=== PATIENT | male | born 1990 | race Caucasian/White ===

== ENCOUNTER 2017-02-16 21:38 | Emergency (ER) | payer OTHER ==
[~2017-02-16] VITALS: Ht 177.8 cm; Wt 81.8 kg
[~2017-02-16 21:38] MED LIST: IBUP800T28 PO; OXYC-407 PO; SULF1TAB7 PO
[2017-02-16 21:41] VITALS: BP 120/84; PULSE 78; RESP 16; O2SAT 97
--- NOTE | 2017-02-16 22:20 | ED.REPORT ---
HPI-Extremity Problem Upper Date of Service Feb 16, 2017 ED Provider: Jaime Hall MD A 26 year old male with no pertinent medical history presents to the ED complaining of a laceration. The pt was catching a softball with his right hand when the ball lacerated his finger. No other trauma is reported. Nursing Notes Stated Complaint: FINGER LACERATION Chief Complaint: Extremity Trauma Nursing Notes Reviewed: Yes Allergies: Coded Allergies: No Known Allergies (Verified Allergy, Unknown, 03/24/16) Scheduled Sulfamethoxazole/Trimeth 800-160 mg (Bactrim DS) 1 Each Tablet 1 TABLET PO BID Scheduled PRN Ibuprofen (Ibuprofen) 800 Mg Tablet 800 MG PO TID PRN PRN For Pain Oxycodone HCl/Acetaminophen 5-325 (Endocet 5-325) 1 Each Tablet 1-2 EACH PO Q6 PRN PRN For Pain General Time Seen by MD: 22:19 Chief Complaint Finger injury right 4 Hx Obtained From: Patient Arrived By: Walk-in Onset Occurred: 1 - 4 hours ago Symptom Duration: Since onset Recent Healthcare: No recent doctor visit, No recent hospitalization Similar Sx Previous: No Past Medical History Past Medical History deviated septum as a child Past Surgical History left hand surgery Smoking History Light Tobacco Smoker (occasional cigar) Social History Alcohol Use: "Social" Drug Use: Denies drug use Other Social History: Good social support, Occupation [employer] Ambulatory Status Independent Review of Systems Review of Systems Note: laceration Musculoskeletal: Reports: Extremity pain, Denies: Back pain, Neck pain Skin: Denies Rash Complete sys rev & neg: except as marked. Respiratory: Denies: Non-productive cough, Shortness of breath Cardiovascular: Denies: Chest pain GI: Denies: Abdominal pain, Diarrhea, Nausea, Vomiting Physical Exam Initial Vital Signs Vital Signs (First) Date Time Temp Pulse Resp B/P Pulse Ox O2 Delivery O2 Flow Rate FiO2 02/16/17 21:41 37.1 78 16 120/84 97 Room Air Initial VS: Reviewed General/Constitutional: Awake, Alert Neck: Atraumatic, Supple, Full range of motion Respiratory / Chest: Atraumatic, Breath sounds NL, Breath sounds = bilat, No respiratory distress Cardiovascular: Heart rate NL, Regular rhythm, Heart sounds NL, No gallop, No murmurs, No rubs Upper Extremity / MS: Atraumatic, Full range of motion Wrist / Hand: Full range of motion, Neurologic intact, Vascular intact 1.5 cm laceration about the right fourth finger overlying the DIP joint on the dorsal aspect of the finger no foreign body or ligamentous injury able to flex and extend the finger Skin: Color NL, No rash, Warm, Dry Neurologic: Oriented X3, Speech NL, No motor deficits, No sensory deficits Head / Eyes: Atraumatic, Normocephalic, PERRL, EOMI ENT: Atraumatic, Airway patent, Mucous membranes moist Abdomen: Atraumatic, Soft, Non-tender Back: Atraumatic, Full range of motion Lower Extremity / Pelvis / MS: Atraumatic, Full range of motion Psychiatric: Affect NL, Mood NL Interpretation & Diagnostics Interpretation & Diagnostics: Right finger x-ray: no acute findings Interpreted by ED physician Procedures Digital Nerve Block Digital Nerve Block Note: palmar approach, injected bilaterally Time: 22:56 Procedure Performed by: ED physician Indication: Finger laceration repair Consent / Setup / Site Prep: Informed consent provided, Consent from patient , Time-out performed, Hand hygiene observed, Stand sterile technique Skin Preparation Agent: Betadine Digit Involved: Ring finger right Digital Block Procedure: Lidocaine 1% (4 ml) Post-Procedure / Complications: Antibiotic oint applied, Dressing applied, No complications, Condition improved, Tolerated procedure well, Patient stable Laceration Management Time: 22:56 Procedure Performed by: ED physician Consent / Setup / Site Prep: Informed consent provided, Consent from patient , Time-out performed, Hand hygiene observed, Stand sterile technique Location of Wound: right fourth finger Wound Length: 1 cm (1.5 cm) Local Anesthesia: Lidocaine 1% Digital Block: Yes Digit Involved: Ring finger right Wound Preparation: Betadine Debridement: None Irrigation: Copious Foreign Body Explore / Removal: Explored for foreign body Repair Skin: ___ O (5), Nylon # Sutures - Skin: 5 Suture Technique: Simple Post-Procedure / Complications: Antibiotic oint applied, Dressing applied, No complications, Condition improved, Tolerated procedure well, Patient stable Re-Eval/Medical Decision Med Decision/Clinical Course In summary, the patient is a 26-year-old male with no significant past medical history who presents with a laceration to the right fourth finger. Our primary and secondary assessment reveals an awake, alert patient in no acute distress. Hemodynamically stable and afebrile. Exam reveals a laceration as described above and they are neurovascularly intact distal to the injury. The wound was thoroughly cleaned, explored and repaired as documented above after performing a digital block. There is no evidence of foreign body or tendinous involvement. Plain films demonstrate no fracture, dislocation or foreign body. Given the patient's workup, feel they are safe for discharge. The patient's tetanus was updated. Have discussed with the patient results of workup, proper wound care, indications for return including signs and symptoms of infection and need for PCP/ER follow up for suture removal. They understand and agree with the plan. Source of Hx: Old records Re-Evaluation/Progress : Time of Eval: 22:56 Patient Status: Condition improved Re-Evaluation/Progress Note: Pt rechecked and laceration repair is performed without complication. The diagnosis and plan for discharge are discussed. The pt understands and agrees with the plan. All questions are addressed at this time. Counseled Regarding: Diagnosis, Need for follow-up, When/why to return to ED Discharge & Departure Impression: Primary Impression: Laceration Additional Impression: Finger pain, right Disposition: Home Discharge Condition All VS Reviewed: Yes Condition: Stable Patient Instructions: Finger Laceration (ED) Additional Instructions: Thank you for seeking care at the emergency room. Our primary goal today in the Emergency Department was to evaluate you for any life-threatening conditions. Your evaluation was reassuring. Keep the wound clean and dry. The stitches should be removed in 7 to 10 days. You can have this done either with your primary care physician or in the Emergency department. You should follow-up with your primary doctor in the next week. You should return to the Emergency Department immediately if you develop fevers , redness, swelling, warmth, discharge, or any other concerning signs or symptoms. Thank you for letting us partake in your care today. Referrals: Juan Daniel Daily ND (PCP) Scribe Attestation Portions of this note were transcribed by Chloé Ramirez. I, Dr. Hall personally performed the history, physical exam and medical decision-making; I reviewed and confirmed the accuracy of the information in the transcribed note. copies to: Juan Daniel Daily ND, Beck O MD Feb 16, 2017 22:20 CHLOÉ RAMIREZ Feb 16, 2017 22:40
[2017-02-16] MEDS ORDERED: Lidocaine 1% 50 mL Inj NERVEBLOCK ONE (22:40)
[2017-02-16] MEDS ORDERED: _HYDROcodone/APAP 5-325 mg Tablet PO PRN (23:20)
[2017-02-16] MEDS ORDERED: TdaP Vaccine 0.5 mL Inj IM ONE (23:25)
--- NOTE | 2017-02-17 13:38 | DRSVH ---
PROCEDURE: X-RAY FINGERS, TWO VIEWS RIGHT INDICATIONS: fx, fb, 4th finger injury, SOFTBALL INJURY TECHNIQUE: AP hand, 2 views of the 4th finger(s) acquired. COMPARISON: None. FINDINGS: Bones: No fractures or dislocations. No suspicious bony lesions. Soft tissues: No suspicious soft tissue calcifications. IMPRESSION: No displaced fracture seen. If there is continued pain, followup exam or additional mark anthony ging such as MRI or CT could be performed for further assessment. Dictated by: Nestor Quigley [facility] Interpreted: Brad Shirley MD on 02/17/2017 at 8:44 Approved by: Brad Shirley M.D. on 02/17/2017 at 13:37
== END 2017-02-17 00:35 | disposition home or self-care (01) ==
LOC: SED 21:38
DX: S61.214A Laceration without foreign body of right ring finger without damage to nail, initial encounter (principal); W21.07XA Struck by softball, initial encounter; Y93.64 Activity, baseball; Y92.019 Unspecified place in single-family (private) house as the place of occurrence of the external cause; Y99.8 Other external cause status